=== PATIENT | male | born 1960 | race Caucasian/White ===

== ENCOUNTER 2017-09-22 11:29 | Emergency (ER) | payer SELFPAY ==
[2017-09-22] MEDS ORDERED: ONDANSETRON INJ 4 MG/2 ML VIAL IV ONE (11:44)
[2017-09-22] MEDS ORDERED: KETOROLAC TROMETHAMINE INJ 30 MG/ML VIAL IV ONE (11:44)
[2017-09-22 11:46] VITALS: TEMP 96.4
--- NOTE | 2017-09-22 11:48 | ED.PDOC ---
History of Present Illness - General Chief Complaint: Abdominal Pain Stated Complaint: Left flank discomfort Time Seen by Provider: 09/22/17 11:40 Information Source: patient Exam Limitations: no limitations - History of Present Illness Abdominal Pain Onset Location: RLQ, flank Pain Radiation: flank - on Left Quality: severe Timing/Duration: 4-6 hours Improving Factors: nothing Worsening Factors: nothing Associated Symptoms: nausea/vomiting Review of Systems - Review of Systems Constitutional: Denies: chills, fever EENTM: States: no symptoms reported Respiratory: States: no symptoms reported. Denies: cough, short of breath Cardiology: States: no symptoms reported. Denies: chest pain Gastrointestinal/Abdominal: States: abdominal pain, nausea, vomiting. Denies: diarrhea Genitourinary: Denies: discharge, dysuria, frequency Musculoskeletal: States: no symptoms reported Skin: States: no symptoms reported Neurological: States: no symptoms reported Endocrine: States: no symptoms reported Hematologic/Lymphatic: States: no symptoms reported Past Medical History (General) - Patient Medical History Hx Seizures: No Hx Stroke: No Hx Asthma: No Hx Congestive Heart Failure: No Hx Hypertension: Yes - non compliant Hx Diabetes: No Hx Renal Disease: No Surgical History: no surgical history - Vaccination History Hx Influenza Vaccination: No Hx Pneumococcal Vaccination: No - Social History Hx Tobacco Use: Yes Family Medical History - Family History Father Family History: No Known Living Status: Physical Exam - Physical Exam General Appearance: Obvious distress Eyes, Ears, Nose, Throat Exam: PERRL/EOMI, pharynx normal Neck: full range of motion Respiratory: chest non-tender, lungs clear, normal breath sounds Cardiovascular/Chest: normal peripheral pulses, regular rate, rhythm, no edema Peripheral Pulses: No deficit Gastrointestinal/Abdominal: normal bowel sounds, non tender, soft Back Exam: normal inspection, CVA tenderness (L) Extremity: normal range of motion, non-tender, normal inspection, no pedal edema Neurologic: alert, normal mood/affect, oriented x 3 Skin Exam: normal color, warm/dry Departure - Departure Clinical Impression: Ureterolithiasis Disposition: Discharge to Home or Self Care Condition: Good Departure Forms: ED Discharge - Pt. Copy, Patient Portal Self Enrollment Instructions: DI for Abdominal Pain-Adult Referrals: MIER DACOSTA MD [Referring] - 1-2 Weeks Prescriptions: RX: Tramadol HCl 50 mg PO Q6HR PRN #15 tab PRN Reason: Moderate To Severe Pain Home Medications: Ambulatory Orders RX: Tramadol HCl 50 mg PO Q6HR PRN #15 tab 09/22/17
--- NOTE | 2017-09-22 13:19 | CT ---
EXAM DESCRIPTION: Abdomen w/o Contrast CLINICAL HISTORY: L flank pain COMPARISON: None Available TECHNIQUE: Contiguous axial images of the abdomen and pelvis were obtained followed by reconstruction images. This exam was performed according to our departmental dose-optimization program, which includes automated exposure control, adjustment of the mA and/or kV according to patient size and/or use of iterative reconstruction technique. FINDINGS: There is left-sided hydronephrosis and perinephric stranding due to a 8.6 x 3.8 mm stone at the distal ureter/ureterovesical junction. Calcifications within the pelvis compatible with phleboliths. There is atherosclerosis. The liver, spleen, pancreas and right kidney are within normal limits. The gallbladder is unremarkable by CT criteria. Adrenal glands are within normal limits. Aorta is of normal caliber and tapering. There is no free fluid in the abdomen or pelvis. There is no bowel obstruction. The appendix is within normal limits. There is no pericecal inflammation. IMPRESSION: Left-sided hydronephrosis due to a 8.6 x 3.8 mm stone at the distal ureter/ureterovesical junction. Electronically signed by: Jose Nelson MD 09/22/2017 1:18 PM CDT
[2017-09-22 13:52] VITALS: BP 180/90; O2SAT 99
== END 2017-09-22 13:52 | disposition home or self-care (01) ==
LOC: ER 11:29
DX: N13.2 Hydronephrosis with renal and ureteral calculous obstruction (principal); I10 Essential (primary) hypertension; Z87.891 Personal history of nicotine dependence; Z91.14 Patient's other noncompliance with medication regimen
CPT/HCPCS: 36415; 74150; 80053; 81001; 85025; J1885; J2405